=== PATIENT | male | born 2000 | race Caucasian/White ===

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

== ENCOUNTER 2022-07-02 18:18 | Emergency (ER) | payer MEDICAID ==
[~2022-07-02] VITALS: Ht 182.9 cm; Wt 85.0 kg
[~2022-07-02 18:18] MED LIST: AMOX500T2 PO; IBUP-2029 MT; P20 PO
[2022-07-02 18:38] VITALS: BP 113/52
== END 2022-07-02 22:30 | disposition left against medical advice (07) ==
LOC: ER 18:18
DX: M54.59 Other low back pain (principal); Z53.21 Procedure and treatment not carried out due to patient leaving prior to being seen by health care provider
CPT/HCPCS: 99281